=== PATIENT | male | born 1980 | race Caucasian/White ===

== ENCOUNTER 2019-07-17 15:41 | Emergency (ER) | payer SELFPAY ==
[~2019-07-17] VITALS: Ht 190.5 cm; Wt 118.2 kg
[2019-07-17] MEDS ORDERED: PRINIVIL10 MG PO (18:38)
[2019-07-17 18:59] VITALS: BP 141/99; PULSE 83; TEMP 98.7
== END 2019-07-17 19:07 | disposition home or self-care (01) ==
LOC: COL.ER 15:41
DX: R04.0 Epistaxis (principal); I10 Essential (primary) hypertension

== ENCOUNTER 2019-07-19 13:54 | Emergency (ER) | payer SELFPAY ==
[~2019-07-19] VITALS: Ht 190.5 cm; Wt 118.2 kg
[~2019-07-19 13:54] MED LIST: PRINIVIL10 MG PO
[2019-07-19 13:57] VITALS: TEMP 98.1
[2019-07-19] MEDS ORDERED: PRINZIDE 12.5 M1 TA1 PO (14:25)
[2019-07-19 15:03] VITALS: BP 154/81; PULSE 97
== END 2019-07-19 15:05 | disposition home or self-care (01) ==
LOC: COL.ER 13:54
DX: R04.0 Epistaxis (principal)

== ENCOUNTER 2023-07-22 16:01 | Emergency (ER) | payer SELFPAY ==
[~2023-07-22] VITALS: Ht 190.5 cm; Wt 102.3 kg
[~2023-07-22 16:01] MED LIST changes: +PRINZIDE 12.5 M1 TA1 PO
[2023-07-22 16:22] VITALS: BP 162/107; TEMP 98.1
[2023-07-22] MEDS ORDERED: POLYMYXIN B/TRIMETH OD (16:48)
[2023-07-22 17:15] VITALS: PULSE 81
== END 2023-07-22 17:15 | disposition home or self-care (01) ==
LOC: COL.ER 16:01
DX: S05.01XA Injury of conjunctiva and corneal abrasion without foreign body, right eye, initial encounter (principal); F17.290 Nicotine dependence, other tobacco product, uncomplicated; W22.8XXA Striking against or struck by other objects, initial encounter; Y92.63 Factory as the place of occurrence of the external cause; Y99.0 Civilian activity done for income or pay